=== PATIENT | female | born 1995 | race Two or more races ===

== ENCOUNTER 2020-06-27 13:07 | Emergency (ER) | payer SELFPAY ==
[~2020-06-27] VITALS: Ht 172.7 cm; Wt 99.8 kg
[2020-06-27 15:37] VITALS: BP 106/55
== END 2020-06-27 17:29 | disposition home or self-care (01) ==
LOC: ER 13:07
DX: Z32.02 Encounter for pregnancy test, result negative (principal); N83.201 Unspecified ovarian cyst, right side
CPT/HCPCS: 36415; 76830; 76856; 84702

== ENCOUNTER 2020-09-13 20:50 | Emergency (ER) | payer SELFPAY ==
[~2020-09-13] VITALS: Ht 172.7 cm; Wt 93.0 kg
[2020-09-13 20:50] VITALS: BP 118/57
[2020-09-13] MEDS ORDERED: IPRATROPIUM BROM 0.5 MG/2.5ML INH SOL NEB ONE (21:45)
[2020-09-13] MEDS ORDERED: ALBUTEROL SULF 2.5 MG/0.5ML(0.5%) NEB SOLN NEB ONE (21:45)
== END 2020-09-14 01:53 | disposition home or self-care (01) ==
LOC: ER 20:50
DX: J45.909 Unspecified asthma, uncomplicated (principal)
CPT/HCPCS: 71046; 93005; 94640; 99283; J7644

== ENCOUNTER 2021-01-03 20:45 | Emergency (ER) | payer MEDICAID ==
[~2021-01-03] VITALS: Ht 172.7 cm; Wt 97.5 kg
[2021-01-03 22:35] LABS: Basophils # (auto) 0 10 ^3/uL (0-0.2); Basophils % (auto) 0.4 % (0.0-2.0); Eosinophils # (auto) 0.1 10 ^3/uL (0-0.8)
[2021-01-03 22:37] LABS: Hematocrit 38.4 % (36.0-46.0); Hemoglobin 12.4 g/dL (12.2-16.2); Lymphocytes # (auto) 3.2 10 ^3/uL (0.4-5.4); Lymphocytes % (auto) 29.1 % (10.0-50.0); Mean Corpuscular Hgb Conc. 32.2 g/dL (32.0-36.0); Mean Corpuscular Volume 80.8 fL (80.0-100.0); Monocytes # (auto) 0.9 10 ^3/uL (0-1.3); Monocytes % (auto) 8.3 % (0.0-12.0); Neutrophils # (auto) 6.8 10 ^3/uL (1.6-8.6); Neutrophils % (auto) 61.2 % (37.0-80.0); Red Blood Cells 4.75 10^6/uL (4.0-5.20); Red Cell Distribution Width 15.3 % (11.8-14.3); White Blood Cell 11.1 10^3/uL (4.4-10.8)
[2021-01-03 22:49] VITALS: BP 129/72
[2021-01-03 22:54] LABS: Alanine Aminotransferase 22 U/L (13-56); Albumin 3.5 g/dL (3.4-5.0); Anion Gap 4 (5-15); Aspartate Aminotransferase 12 U/L (15-37); BUN/Creatinine Ratio 14.9; Blood Urea Nitrogen 11 mg/dL (7-18); Calcium 8.2 mg/dL (8.5-10.1); Carbon Dioxide 25 mmol/L (21-32); Chloride 110 mmol/L (98-107); GFR African American 121 mL/min; GFR Non-African American 100 mL/min; Glucose 86 mg/dL (74-106); Magnesium 1.9 mg/dL (1.6-2.6); Potassium 3.7 mmol/L (3.5-5.1); Sodium 139 mmol/L (136-145)
[2021-01-03 22:59] LABS: Alkaline Phosphatase 143 U/L (45-117); Bilirubin, Total 0.2 mg/dL (0.2-1.0); Total Protein 7.4 g/dL (6.4-8.2)
== END 2021-01-04 03:14 | disposition home or self-care (01) ==
LOC: ER 20:46
DX: J20.9 Acute bronchitis, unspecified (principal); R06.02 Shortness of breath; R05 Cough; R53.83 Other fatigue; E66.9 Obesity, unspecified; J45.909 Unspecified asthma, uncomplicated; Z68.32 Body mass index [BMI] 32.0-32.9, adult; Z20.822 Contact with and (suspected) exposure to COVID-19
CPT/HCPCS: 36415; 71045; 80053; 83735; 84484; 85025; 87426; 93005

== ENCOUNTER 2021-01-07 16:12 | Emergency (ER) | payer MEDICAID ==
[~2021-01-07] VITALS: Ht 172.7 cm; Wt 99.8 kg
[2021-01-07] MEDS ORDERED: methylPREDNISolone SOD SUCC 125 MG/2 ML VL IM ONE (17:45)
[2021-01-07] MEDS ORDERED: IPRATROPIUM BROM 0.5 MG/2.5ML INH SOL NEB ONE (17:45)
[2021-01-07] MEDS ORDERED: ALBUTEROL SULF 2.5 MG/0.5ML(0.5%) NEB SOLN NEB ONE (17:45)
[2021-01-07 18:00] VITALS: BP 136/83
== END 2021-01-07 18:28 | disposition home or self-care (01) ==
LOC: ER 16:12
DX: J45.901 Unspecified asthma with (acute) exacerbation (principal)
CPT/HCPCS: 94640; 96372; 99283; J2930; J7644

== ENCOUNTER 2021-05-27 11:07 | Emergency (ER) | payer MEDICAID ==
[~2021-05-27] VITALS: Ht 172.7 cm; Wt 104.3 kg
[2021-05-27 12:21] LABS: Basophils # (auto) 0 10 ^3/uL (0-0.2); Basophils % (auto) 0.5 % (0.0-2.0); Eosinophils # (auto) 0.1 10 ^3/uL (0-0.8); Eosinophils % (auto) 0.9 % (0.0-7.0); Mean Corpuscular Hemoglobin 26.5 pg (28.0-32.0); Monocytes # (auto) 0.6 10 ^3/uL (0-1.3); Neutrophils # (auto) 6.1 10 ^3/uL (1.6-8.6); Red Cell Distribution Width 14.2 % (11.8-14.3)
[2021-05-27 12:23] LABS: Hematocrit 40.4 % (36.0-46.0); Hemoglobin 13.1 g/dL (12.2-16.2); Lymphocytes # (auto) 2.3 10 ^3/uL (0.4-5.4); Lymphocytes % (auto) 24.9 % (10.0-50.0); Mean Corpuscular Hgb Conc. 32.4 g/dL (32.0-36.0); Mean Corpuscular Volume 81.7 fL (80.0-100.0); Monocytes % (auto) 6.1 % (0.0-12.0); Neutrophils % (auto) 67.6 % (37.0-80.0); Red Blood Cells 4.95 10^6/uL (4.0-5.20); White Blood Cell 9.1 10^3/uL (4.4-10.8)
[2021-05-27 12:48] VITALS: BP 124/61
[2021-05-27] MEDS ORDERED: IBUP800T27 PO (12:50)
== END 2021-05-27 12:57 | disposition home or self-care (01) ==
LOC: ER 11:07
DX: N92.5 Other specified irregular menstruation (principal); J45.909 Unspecified asthma, uncomplicated; Z32.02 Encounter for pregnancy test, result negative
CPT/HCPCS: 36415; 81025; 84702; 85025

== ENCOUNTER 2022-03-07 19:31 | Emergency (ER) | payer MEDICAID ==
[~2022-03-07] VITALS: Ht 172.7 cm; Wt 116.0 kg
[~2022-03-07 19:31] MED LIST: IBUP800T27 PO
[2022-03-07 23:25] VITALS: BP 111/86
[2022-03-07] MEDS ORDERED: CEPH-510 PO (23:27)
== END 2022-03-07 23:32 | disposition home or self-care (01) ==
LOC: ER 19:31
DX: N61.0 Mastitis without abscess (principal); J45.909 Unspecified asthma, uncomplicated